=== PATIENT | male | born 1995 | race Caucasian/White ===

== ENCOUNTER 2023-02-02 17:50 | Emergency (ER) | payer OTHER, SELFPAY ==
[2023-02-02 18:09] VITALS: BP 148/80; PULSE 90; RESP 20; TEMP 36.6; O2SAT 99; BMI 23.1
--- NOTE | 2023-02-02 18:11 | EX.ED.GENINJ ---
HPI <SHERRIE Dennis - Last Filed: 02/02/23 20:36> History of Present Illness Chief Complaint: Laceration Narrative Narrative: Patient presenting today with a laceration to his right ventral forearm that he got this evening when he reached over for somebody who was using a chain saw, the chain saw kicked back and hit him in the arm. Tetanus is not up-to-date. He denies any other injury, he is not on any blood thinners. PFSH <SHERRIE Dennis - Last Filed: 02/02/23 20:36> [facility] Medical History no medical history Home Medications cephalexin 500 mg capsule 500 mg PO Q6 7 days #28 CAPSULES 02/02/23 [Rx Last Taken Unknown] doxycycline hyclate 100 mg capsule 100 mg PO BID 7 days #14 caps 02/02/23 [Rx Last Taken Unknown] Allergy/AdvReac Type Severity Reaction Status Date / Time No Known Allergies Allergy Verified 02/02/23 18:12 Family History no significant family his Surgical History no surgical history Social History Smoking Status: Current every day smoker tobacco type: cigarettes ROS <SHERRIE Dennis - Last Filed: 02/02/23 20:36> ROS ED Constitutional Constitutional ED: Denies chills or fever(s) Cardiovascular Cardiovascular: Denies chest pain Respiratory/Chest Respiratory/Chest: Denies cough or dyspnea Gastrointestinal Gastrointestinal: Denies abdominal pain, nausea or vomiting Musculoskeletal Musculoskeletal: Denies arthralgias or myalgias Integumentary Reports laceration Neurologic Neurologic: Denies paresthesias or weakness Hematologic/Lymphatic Hematologic/Lymphatic: Denies easy bleeding EXAM <SHERRIE Dennis - Last Filed: 02/02/23 20:36> Physical Exam Const Vital Signs: 02/02/23 18:09 02/02/23 20:22 Temperature 97.9 F Temperature Source Temporal Pulse Rate 90 80 Respiratory Rate 20 H 16 Blood Pressure 148/80 H 135/85 H Blood Pressure Mean 102 101 Pulse Ox 99 99 Oxygen Delivery Method Room Air Positive well nourished, well developed and no apparent distress General Appearance ED: well developed HEENT Reports normocephalic and head/scalp atraumatic Mouth ED: Yes moist mucous membranes normal Eyes PERRL and EOMs intact bilaterally Neck full ROM and supple Chest Wall inspection of chest normal Resp normal respiratory effort and clear to auscultation bilaterally Cardio regular rate and regular rhythm GI soft to palpation, non-tender, non-distended and no masses Back/Spine normal ROM Extremity normal to inspection and full ROM Extremity Narrative: Good capillary refill, sensation intact, full range of motion to the right elbow, wrist, hand, and fingers. 4 inch linear and gaping laceration that does go through the muscle about 2 cm deep to the right volar forearm. Neuro oriented x3, CN's II-XII intact bilaterally, moves all extremities, no focal motor deficits and no sensory deficits noted Sensorium / Orientation: awake and alert Psych mental status grossly normal and thought process normal <Dr. Davonte Aviles MD - Last Filed: 02/02/23 22:01> Physical Exam Const Vital Signs: 02/02/23 18:09 02/02/23 20:22 Temperature 97.9 F Temperature Source Temporal Pulse Rate 90 80 Respiratory Rate 20 H 16 Blood Pressure 148/80 H 135/85 H Blood Pressure Mean 102 101 Pulse Ox 99 99 Oxygen Delivery Method Room Air MDM <SHERRIE Dennis - Last Filed: 02/02/23 20:36> [facility] Narrative Medical decision making narrative: Patient presenting today with a laceration to his right forearm from a chain saw that he got this afternoon. He is well-appearing, nontoxic. This laceration is large, about 11 cm in length and is gaping about 6 cm. It does go through the muscle about 2 cm in depth. He does have full range of motion, intact pulses, and good sensation to his right arm. There are concerns that this is going to be difficult to properly clean here in the ER, especially since it went through the muscle via a dirty object. Dr. العراقي has been consulted and will come in to evaluate patient to determine whether or not he needs to go to the OR for proper cleaning. He has been started on Ancef, tetanus has been updated and he has been given pain control. Dr. العراقي did close the laceration, he will follow-up in the office on Saturday. He will be given a prescription for doxycycline and Keflex. He will be discharged home in stable condition and is comfortable with plan, he has been given reasons to return. Radiography X-Ray: Read by ED Physician and Read by Radiologist Diagnostic Testing: Clinical Impression(s) from Imaging Studies Forearm X-Ray 02/02/23 18:44 IMPRESSION: Soft tissue laceration in the upper forearm, otherwise unremarkable radius and ulna. No radiopaque foreign body seen. Electronically Signed: Rocio White MD at 19:13 EDT , <Dr. Davonte Aviles MD - Last Filed: 02/02/23 22:01> MDM Radiography Diagnostic Testing: Clinical Impression(s) from Imaging Studies Forearm X-Ray 02/02/23 18:44 IMPRESSION: Soft tissue laceration in the upper forearm, otherwise unremarkable radius and ulna. No radiopaque foreign body seen. Electronically Signed: Rocio White MD at 19:13 EDT , Treatment and Re-Evaluation Narrative: I have personally performed a face to face assessment of the patient and have reviewed the MAKAYLA Note. I performed a substantive portion of the visit including all aspects of the following. My saavedra findings include: History: This is a overall healthy male laceration to the right dominant hand forearm with a chainsaw. He was reaching over somebody using a saw when the saw kicked back and hit his right forearm. He denies numbness tingling or loss of function. He states he can move all his fingers well. The bleeding has stopped spontaneously. He is not on blood thinners. Exam: Patient has a large open and jagged laceration of the right forearm. We will measure this but it is approximately 10 to 12 cm in length at the proximal aspect of the forearm and the anterior medial side. More toward the medial aspect the skin is jagged and torn. But he also has laceration into the muscle belly on the flexor side. This goes 1 and half to 2 cm deep into the muscle. I can see the myometrial edges. There is some material on the edges of the wound. I do not see any deeper material but deep evaluation is limited until the area has anesthesia. His range of motion is actually excellent. He has no sensory loss. Medical Decision Making: Patient will be given antibiotics pain meds and we will do x-rays of the forearm. My concern is that this patient may need some more complex therapy and possibly even a washout. I would like to get orthopedics opinion on this to see if this can be sutured here. We discussed the case with Dr. العراقي who is coming in to see the patient. My independent interpretation of the patient's two-view x-ray of the right forearm shows a soft tissue defect but no sign of bony involvement. Final reading is similar. Dr. العراقي was able to evaluate and anesthetize clean and closed this here in the department. He will follow-up closely. We will place the patient on antibiotics. Discharge Plan Triage Chief Complaint: Laceration ED Midlevel Provider: Milvia Keller ED Provider: Davonte Aviles Dx/Rx/DC Orders Clinical Impression: Laceration of arm, right, complicated, Contact with chainsaw as cause of accidental injury Instructions: ED Laceration: All Closures Prescriptions: New cephalexin 500 mg capsule 500 mg PO Q6 7 Days Qty: 28 0RF doxycycline hyclate 100 mg capsule 100 mg PO BID 7 Days Qty: 14 0RF Primary Care Provider: Eun Greene Referrals: Eun Greene MD [Primary Care Provider] - Todd العراقي MD [Med Staff - Active Staff] - 3-5 Days Activity Restrictions/Additional Instructions: Please follow-up with Dr. العراقي on Saturday. Return for any worsening of your symptoms and take antibiotics as prescribed. Disposition Disposition: Home, Self Care
[2023-02-02] MEDS: Diphth,Pertuss(Acell),Tet Vac 0.5 ML Vial IM (18:28)
[2023-02-02] MEDS: Lidocaine 2% /Epi 1:100 (20ml) 20 ML VIAL 10 ML INFILT (18:28)
[2023-02-02] MEDS: Morphine 4 MG/ML Syringe IV ×2 (18:30→19:11)
[2023-02-02] MEDS: Ondansetron 4 MG/2 ML Vial IV (18:30)
--- NOTE | 2023-02-02 18:44 | RAD_ITS ---
STUDY: X-RAY - RIGHT RADIUS AND ULNA REASON FOR EXAM: Male, 27 years old. laceration TECHNIQUE: 2 view(s) of the forearm. COMPARISON: None. FINDINGS: There is lucency with surrounding swelling in the volar and ulnar side of the cephalad forearm consistent with laceration and surrounding hematoma measuring at least 1.8 cm in depth or length. Normal visualized radius. Normal visualized ulna. RAD/Forearm 2 Views IMPRESSION: Soft tissue laceration in the upper forearm, otherwise unremarkable radius and ulna. No radiopaque foreign body seen. Electronically Signed: Rocio White MD at 19:13 EDT ,
[2023-02-02] MEDS: Cefazolin 1 GM in 0.9% Normal Saline (100mL Bag) 100 ML IV (19:14)
--- NOTE | 2023-02-02 20:13 | CONS.ORTHO ---
HPI Consult Data Date of Consult: 02/02/23 HPI Narrative HPI Narrative: ELICEO MORA, is a 27 M who presents with a right volar proximal forearm laceration chainsaw injury this evening about 5 PM roughly. Patient had received IV Ancef and tetanus by the ED provider. Patient is [id number]. Was not a work-related injury. Here with their family. [facility] Medical History no medical history Home Medications cephalexin 500 mg capsule 500 mg PO Q6 7 days #28 CAPSULES 02/02/23 [Rx Last Taken Unknown] doxycycline hyclate 100 mg capsule 100 mg PO BID 7 days #14 caps 02/02/23 [Rx Last Taken Unknown] Allergy/AdvReac Type Severity Reaction Status Date / Time No Known Allergies Allergy Verified 02/02/23 18:12 Family History no significant family his Surgical History no surgical history Social History Smoking Status: Current every day smoker tobacco type: cigarettes Vital Signs Vital Signs Vital Signs: 02/02/23 18:09 Temperature 97.9 F Temperature Source Temporal Pulse Rate 90 Respiratory Rate 20 H Blood Pressure 148/80 H Blood Pressure Mean 102 Pulse Ox 99 Oxygen Delivery Method Room Air Weight Weight: 152 lb Body Mass Index (BMI) 23.1 Physical Exam Const alert, oriented x3 and well nourished Extremity Extremity Narrative: Obliquely oriented 4 inch complex laceration to the volar proximal forearm right side more towards the medial side. Normal flexion and extension of the wrist all the fingers including the thumb and elbow. This does involve the deep muscle layer and the fascia overlying the common flexor muscle mass but does not probe deep. Mild slow bleeding. Wound edges are little bit complex and macerated. Otherwise normal sensation and motor function in the hand to the median radial ulnar nerves as well as AIN/PIN. Hand is warm and well-perfused strong radial and ulnar pulses. Full elbow and wrist range of motion. Radiology Impression Forearm X-Ray 02/02/23 18:44 IMPRESSION: Soft tissue laceration in the upper forearm, otherwise unremarkable radius and ulna. No radiopaque foreign body seen. Electronically Signed: Rocio White MD at 19:13 EDT , no fracture appreciated Assessment & Plan Assessment/Plan (1) Laceration of arm, right, complicated: PLAN: 27-year-old man with a complex laceration that goes into the fascial layer of the common flexor origin. No fracture. This is about 4 inches long. We discussed with the patient irrigation and debridement and wound closure. Patient wished to go ahead with this in the emergency department rather than the operating theater I think this is certainly reasonable. Explained the pros and cons risk and benefits of this and performed a wound closure with irrigation and debridement and dressing application. Asked the patient to rest the forearm arm and hand for the next 2 days and follow-up in clinic on Saturday. Also spoke directly to Dr. Aviles the ED provider to asked that the patient be discharged home on oral antibiotics at least dual therapy for broad-spectrum coverage given the dirty nature of the injury. Did warn the patient as well as her family about warning signs red flag symptoms of infection and compartment syndrome and what to watch out for otherwise rest ice and elevate the arm keep the incision clean and dry they understood no further questions or concerns. Discussed the pros and cons risk benefits of right forearm laceration irrigation and debridement and closure. Pros and cons risks and benefits were discussed with the patient including but not limited to infection, pain, stiffness, bleeding, damage to surrounding structures, neurovascular injury, recurrence or retear, failure or wear of hardware or fixation, instability, fracture, deep vein thrombosis and pulmonary embolism, anesthetic risks, , patient dissatisfaction, need for further surgery and other risks. Patient understood and wished to proceed with surgery, and signed the informed consent documentation. I marked the right forearm. I started out with thoroughly cleaning the wound with iodine. I also thoroughly irrigated and removed any contamination grossly which there was overall minimal with copious 3 L of sterile water. I let the iodine thoroughly dry. I used 15 cc of 1% lidocaine around the laceration site. Patient did get 4 mg of IV morphine at the start of the procedure. I did a preprocedure timeout before doing anything with the nurse to confirm the site patient and the procedure to be done. I did thorough documentation of this document to the consent form put that in the chart. Neurovascular checks before and after. He was able to again flex and extend the wrist and all fingers. I loosely approximated the fascial cut with 2-0 Vicryl suture. I then closed the subcutaneous tissue with 2-0 Vicryl suture and skin with 3-0 Monocryl. Bleeding well controlled. Again the length of the incision was 4 inches but again this involves multiple smaller lacerations to be closed. At the end I thoroughly cleaned the skin with wet and dry dressing followed by a Adaptic 4 x 4 gauze Shanika wrap and Marcel wrap over top loosely wrapped. Again post procedure instructions given to the patient and asked him to follow-up on Saturday. They understood no further questions or concerns.
--- NOTE | 2023-02-02 20:16 | CM.ED ---
Social Work Referral Source: case find Referral Reason: self-pay SW met with patient and introduced self and role as [facility] SW. Patient seated on hospital bed and agreeable to speak with SW with guests present. SW engaged patient in conversation regarding insurance and community resource needs as patient is listed as self pay. Patient receptive towards Medicaid application and instructions in case patient needs it in the future. SW also provided [employer] resource list as well as information for [employer] and [facility]. No other needs voiced at this time; SW remains available if needs arise. Sydnie Oconnell SLING OPERATOR, [employer]
[2023-02-02 20:22] VITALS: BP 135/85; PULSE 80; RESP 16; O2SAT 99
== END 2023-02-02 21:01 | disposition home or self-care (01) ==
PROVIDERS: Emergency Provider Emergency Medicine; PCP Family Medicine; Visit Provider Emergency Medicine
DX: S51.811A Laceration without foreign body of right forearm, initial encounter (principal); F17.210 Nicotine dependence, cigarettes, uncomplicated; Z23 Encounter for immunization; X58.XXXA Exposure to other specified factors, initial encounter
CPT/HCPCS: 73090; 90471; 90715; 96365; 96375; 96376; 99284; J7050; A4216; J2405